=== PATIENT | male | born 1955 | race Caucasian/White ===

== ENCOUNTER 2025-04-02 18:29 | Emergency (ER) | payer SELFPAY ==
[2025-04-02] VITALS (24 sets, daily range): BP systolic 109–247; BP diastolic 52–132
[2025-04-02] MEDS: CARDENE 200 IV (18:43)
[2025-04-02] MEDS: DIPRIVAN 100 IV ×2 (18:45→20:45)
--- NOTE | 2025-04-02 19:03 | ED.GENMED ---
History of Present Illness
General
Chief Complaint: Unresponsive
Source: patient and ambulance crew
Exam Limitations: altered mental status
Time Seen by Provider: 04/02/25 18:34
Nursing documentation reviewed up to this point in time: agreed with
History of Present Illness
History of Present Illness:
Patient with history of hypertension, presents to ED secondary to sudden onset of frontal headache, while watching TV with his spouse, shortly prior to arrival. Shortly afterwards, patient started complaining of severe pain radiating to back of his
head. When medics arrived at home, patient was found to be severely hypertensive and transition to ED, patient became more unresponsive, although maintaining airway. Upon arrival, patient is found to be obtunded, unable to obtain any further
information.
Review of Systems
Review of Systems
Allergies reviewed?: Yes
Unable to obtain full review of systems at this time due to: due to acuity
All Other Systems: Not applicable
Phy Exam
Physical Exam
Physical Exam:
Physical Exam
General: moderate distress, acutely ill. afebrile. unresponsive
Head: nc/at
Neck: supple. no jvd.
Heart: s1/s2 regular rate and rhythm
Lungs: no acute respiratory distress. clear bilaterally
Abdomen: normal bowel sounds. not tender.
Neuro: Obtunded and unresponsive. Intermittent spontaneous posturing noted of upper and lower extremity.
Skin: no rash
Extremities: no edema.
Course
Orders/Labs/Results
Orders:
Orders
04/02/25
Electrocardiogram (*1) Stat
Comment: DONE
04/02/25 18:38
Nicardipine 40 mg/200 ml [Cardene] 40 mg in 200 ml .ROUTE .STK-MED
Propofol 1,000,000 Mcg/100 ml [Diprivan] 1,000,000 mcg in 100 ml .ROUTE .STK-MED
04/02/25 18:40
Portable Chest Xray [CR Chest Portable - 1 View] Stat
Comment:
Reason For Exam: ET confirmation
Reason Study Needs to be Portable: Unable to Transport
04/02/25 18:41
CT Head W/o Iv Contrast Stat
Comment:
Reason For Exam: snoring respirations unresponsive
04/02/25 18:46
Complete Blood Count/With Diff Urgent
Comprehensive Metabolic Panel Urgent
PTT Urgent
Prothrombin Time Urgent
Triglycerides Urgent
Comment: ADD ON
04/02/25 19:00
Nicardipine 40 mg/200 ml [Cardene] 40 mg in 200 ml IV PER PROTOCOL
Initial dose in mg/hr, then titrate:: 5
Titrate to keep:: SBP 140 - 160 mmHg
Titrate by mg/hr:: 2.5 mg/hr
Frequency of titrations (minutes):: 5-15 minutes
Maximum dose in mg/hr:: 15
Begin to taper infusion when:: Remained at goal for 2hrs
Taper by mg/hr:: 2.5 mg/hr
Frequency of taper (minutes) if patient maintains goal:: every 15-30 minutes
Taper to off?: Yes
If infusion off & no longer maintaining goal:: Contact Provider
Propofol 1,000,000 Mcg/100 ml [Diprivan] 1,000,000 mcg in 100 ml IV NOW
Indication:: Light Sedation
Begin Infusion:: Now
Goal:: RASS 0 to -2
Maximum dose in mcg/kg/min:: 50
Initial dose based on RASS:: Yes
If RASS is:: +1 or pt hemodynamically unstable (SBP < 90mmHg), initiate at 10 mcg/kg/min
If RASS is:: +2, initiate at 20 mcg/kg/min
If RASS is:: greater than or equal to +3, initiate at 30 mcg/kg/min
Titration Instructions:: Titrate by 5-10 mcg/kg/min every 5 minutes until RASS 0 to -2 achieved.
Taper Instructions:: If RASS is at or below goal for 4 consecutive hours decrease infusion by
Taper Instructions:: 5-10 mcg/kg/min every 2 hours to off.
Over-sedation Instructions:: If CPOT 0-2 (at goal) AND RASS -3 to -5 (below goal) decrease sedative by
Over-sedation Instructions:: 50% first. If pain score remains at goal and RASS remains below goal in
Over-sedation Instructions:: 1 hour, decrease opioid infusion by 50%.
Notify provider:: immediately if patient exhibits signs/symptoms of propofol-related
Notify provider:: infusion syndrome.
Additional Instructions:: Patient MUST be mechanically ventilated and MUST receive analgesia.
04/02/25 19:01
Etomidate [Amidate 20 mg] 20 mg IV NOW STA
Levetiracetam Injectable [Keppra] 1,000 mg IV NOW STA
Succinylcholine Chloride [Anectine] 160 mg IV NOW STA
04/02/25 19:05
Add On- LAB Urgent
Tests Added?: triglycerides
04/02/25 19:17
Levetiracetam Injectable [Keppra] 500 mg .ROUTE .STK-MED ONE
04/02/25 19:19
Levetiracetam Injectable [Keppra] 1,000 mg IV NOW STA
04/02/25 19:23
Vecuronium [place] [Norcuron] 10 mg IV NOW STA
04/02/25 20:18
Labetalol HCl [Trandate] 20 mg .ROUTE .STK-MED ONE
04/02/25 21:04
Propofol 1,000,000 Mcg/100 ml [Diprivan] 1,000,000 mcg in 100 ml IV NOW
Indication:: Light Sedation
Begin Infusion:: Now
Goal:: RASS 0 to -2
Maximum dose in mcg/kg/min:: 50
Initial dose based on RASS:: Yes
If RASS is:: +1 or pt hemodynamically unstable (SBP < 90mmHg), initiate at 10 mcg/kg/min
If RASS is:: +2, initiate at 20 mcg/kg/min
If RASS is:: greater than or equal to +3, initiate at 30 mcg/kg/min
Titration Instructions:: Titrate by 5-10 mcg/kg/min every 5 minutes until RASS 0 to -2 achieved.
Taper Instructions:: If RASS is at or below goal for 4 consecutive hours decrease infusion by
Taper Instructions:: 5-10 mcg/kg/min every 2 hours to off.
Over-sedation Instructions:: If CPOT 0-2 (at goal) AND RASS -3 to -5 (below goal) decrease sedative by
Over-sedation Instructions:: 50% first. If pain score remains at goal and RASS remains below goal in
Over-sedation Instructions:: 1 hour, decrease opioid infusion by 50%.
Notify provider:: immediately if patient exhibits signs/symptoms of propofol-related
Notify provider:: infusion syndrome.
Additional Instructions:: Patient MUST be mechanically ventilated and MUST receive analgesia.
Abnormal Lab Results
04/02/25
18:46
RBC 4.53 L 10^6/uL
(4.70-6.10)
Absolute Lymphs (auto) 5.1 H 10^3/uL
(1.2-3.4)
Absolute Monos (auto) 0.9 H 10^3/uL
(0.1-0.6)
Neutrophils % 34.2 L %
(42.2-75.2)
Lymphocytes % 51.6 H %
(20.5-51.1)
Chloride 108 H mmol/L
(98-107)
Carbon Dioxide 21 L mmol/L
(22-30)
BUN 22 H mg/dl
(9-20)
Glucose 157 H mg/dl
(70-99)
Triglycerides 154 H mg/dl
(10-149)
04/02/25 18:46
04/02/25 18:46
Vital Signs
Initial and Last Documented VS:
Initial Vital Signs
Pulse Resp Pulse Ox
89 20 94
04/02/25 18:33 04/02/25 18:33 04/02/25 18:33
Last Documented Vital Signs
Temp Pulse Resp BP Pulse Ox
97.3 F 87 20 172/80 94
04/02/25 20:14 04/02/25 20:30 04/02/25 20:30 04/02/25 20:30 04/02/25 19:03
Procedures
Intubations
Procedure completed by: Fernando Hinton M.D.
Method of Intubation: glidescope
Tube size (cm): 8.0
Placement confirmed by: auscutation, CXR and capnography
Breath sounds after intubation: equal
Intubation complications: no complications
MDM/Problems Addressed
MDM/Problems Addressed:
History, exam, and CT head consistent with cerebellar hemorrhage along with additional hematoma noted. Patient remains obtunded with minimal gag reflex. As such, decision made to intubate patient for airway protection. Patient started on propofol
infusion along with nicardipine infusion for blood pressure control, as patient is extremely hypertensive. In addition, patient given loading dose of Keppra, with concern for potential seizure with spontaneous movement noted.
Discussed with patient's spouse at bedside. Patient is full code.
Decision made to transfer patient to [facility] for further care.
Discussed with neurocritical gas pumping station supervisor (Dr. Marrero) at [facility]. Accepts transfer of the patient. Recommends keeping blood pressure at approximately 20% reduction from presenting blood pressure. As such, target goal will be systolic blood
pressure 160-180.
Transfer consent on the chart. Patient will be transferred to [facility] via [facility].
Critical care statement: A total of 80 minutes of critical care time was provided for this patient. This includes management of unstable vital signs, evaluation of the patient at bedside, reviewing the patient's pertinent medical records, discussion
with consultants, review of old EKGs and review of pertinent medical records. This time with separate from time utilized to perform the aforementioned documented procedures
*Pulse Oximetry
SaO2: 94
Oxygen Mode of Delivery: Room air
Patient hypoxic: no
*EKG
Interpreted by ED Provider?: Yes
EKG Intrepretation Date: 04/02/25
Heart Rate: 79
Rate: normal
Rhythm: sinus and PVC's
[place]: normal axis
Interval: normal interval
*Critical Care Note
Total Time (30-74mins, 75-104mins- exclusive of procedures): 80 min
ED Attending Note
-
Portions of this chart may have been created with voice recognition software.� Occasional wrong word or��sound alike� substitutions may have occurred due to the inherent limitations of voice recognition software.
Discharge Plan
Departure
Patient Disposition: Acute Care Hospital
Discharge Problem:
Cerebellar hemorrhage
Prescriptions:
No Action
pravastatin 20 mg tablet
20 mg PO HS
ramipril 5 mg capsule
5 mg PO DAILY
Referrals:
UNKNOWN - PT NOT,INTERVIEWE [Family Provider]
Hospital Transfer
Other hospital: [facility]
I certify that the patient requires transfer: Yes
Discussed case with accepting physician:
Reason for transfer: higher level of care, medical necessity, availability of service and specialties available
Interventions
Interventions:
*Risk Screen - Suicide Last Done: 04/02/25 18:35
*General Assessment Last Done: 04/02/25 18:35
*Neglect/Abuse Screening Last Done: 04/02/25 18:35
*ED- Fall Risk Assessment Last Done: 04/02/25 18:35
*ED COVID-19 Vaccine History Last Done: 04/02/25 18:35
*ED Influenza Vaccine History Last Done: 04/02/25 18:35
*Nursing Disposition Last Done: 04/02/25 20:49
ED- Neurological Assessment Last Done: 04/02/25 19:00
Discharge Date and Time
Discharge Date/Time: 04/02/25 20:50
Print Language: ICELANDIC
[2025-04-02 19:06] LABS: Hematocrit 40.7 % (39.0-52.0); Hemoglobin 14.0 g/dL (13.0-18.0); Mean Corp Hgb Conc. 34.4 g/dL (33.0-37.0); Mean Corpuscular Volume 89.8 fL (80.0-94.0); Nucleated Red Blood Cells % 0 % (-); Platelet Count 264 10^3/uL (130-400); Red Cell Dist. Width 12.7 % (11.5-14.5)
[2025-04-02 19:07] LABS: INR 1.00; PT 13.5 Sec (11.4-14.6)
[2025-04-02 19:08] LABS: APTT 27.0 Sec (23.4-35.0)
--- NOTE | 2025-04-02 19:09 | EDRN ---
1837- 20 Etomidate given upon arrival back from CT scan
183- 160 Sux given upon arrival back from CT scan
184- Pt intubated w/ 7.5 O tube; + b/l breath sounds + color change on CO2 monitor. Pt placed on ventilator by respiratory. Portable CXR obtained at bedside
184- Cardene gtt started as verbally ordered
1844- Propofol gtt started as verbally ordered
[2025-04-02 19:17] LABS: ALT (SGPT) 25 U/L (0-50); AST (SGOT) 28 U/L (17-59); Albumin 4.5 g/dl (3.5-5.0); Alkaline Phosphatase 62 U/L (38-126); Blood Urea Nitrogen 22 mg/dl (9-20); Calcium 9.3 mg/dl (8.4-10.2); Carbon Dioxide 21 mmol/L (22-30); Chloride 108 mmol/L (98-107); Glucose 157 mg/dl (70-99); Potassium 3.8 mmol/L (3.5-5.1); Sodium 140 mmol/L (135-145); Total Protein 7.1 g/dl (6.3-8.2); eGFR > 60.00
[2025-04-02] MEDS: KEPPRA 1000 MG IV ×2 (19:18→19:27)
[2025-04-02 19:23] LABS: Triglycerides 154 mg/dl (10-149)
[2025-04-02] MEDS: NORCURON 10 MG IV (19:30)
== END 2025-04-02 20:50 | disposition short-term general hospital (02) ==
LOC: EMR 18:29
PROVIDERS: EMERGENCY PHYSICIAN Emergency Medicine
DX: I61.4 Nontraumatic intracerebral hemorrhage in cerebellum (principal); I10 Essential (primary) hypertension; I49.3 Ventricular premature depolarization
CPT/HCPCS: 99291; 99292; 96365; 96366; 96375 ×3; 96376 ×2; 70450; 71045; 80053; 84478; 85025; 85610; 85730; 93005; 94002